=== PATIENT | female | born 1965 | race Caucasian/White ===

== ENCOUNTER → 2024-01-11 14:30 | Outpatient (REF) | payer BC, SELFPAY | LOC: RAD 14:30 | PROVIDERS: ATTENDING PHYSICIAN Nurse Practitioner; FAMILY PHYSICIAN Internal Medicine | DX: M25.561 Pain in right knee (principal) | CPT/HCPCS: 73564 ==

== ENCOUNTER → 2024-02-02 08:13 | Outpatient (REF) | payer BC, SELFPAY | LOC: HWRAD 08:13 | PROVIDERS: ATTENDING PHYSICIAN Nurse Practitioner | DX: M71.21 Synovial cyst of popliteal space [Baker], right knee (principal) | CPT/HCPCS: 76882 ==

== ENCOUNTER → 2024-02-22 16:14 | Outpatient (REF) | payer BC, SELFPAY | LOC: WDC 16:14 | PROVIDERS: ATTENDING PHYSICIAN Obstetrics & Gynecology; FAMILY PHYSICIAN Internal Medicine | DX: Z12.31 Encounter for screening mammogram for malignant neoplasm of breast (principal) | CPT/HCPCS: 77063; 77067 ==

== ENCOUNTER → 2024-03-17 09:56 | Outpatient (REF) | payer BC, SELFPAY ==
[2024-03-17 11:10] LABS: % Basophils 0.6 % (0-2); % Eosinophils 2.6 % (0-6); % Immature Granulocytes 0.6 % (0-0.5); % Monocytes 10.5 % (1.7-9.3); % Neutrophils 71.7 % (42.2-75.2); Absolute Eosinophils 0.1 10^3/uL (0-0.7); Absolute Lymphocytes 0.5 10^3/uL (1.2-3.4); Absolute Monocytes 0.4 10^3/uL (0.1-0.6); Absolute Neutrophils 2.5 10^3/uL (1.4-6.5); Hematocrit 37.4 % (37.0-47.0); Hemoglobin 12.7 g/dL (12.0-16.0); Mean Corpuscular Hgb 31.6 pg (27.0-31.0); Mean Platelet Volume 9.8 fL (7.4-10.4); Nucleated Red Blood Cells % 0 %; Platelet Count 187 10^3/uL (130-400); Red Blood Cell Count 4.02 10^6/uL (4.20-5.40); Red Cell Dist. Width 12.2 % (11.5-14.5); White Blood Cell Count 3.4 10^3/uL (4.8-10.8)
[2024-03-17 11:49] LABS: ALT (SGPT) 32 U/L (0-35); AST (SGOT) 28 U/L (14-36); Albumin 5.2 g/dl (3.5-5.0); Alkaline Phosphatase 77 U/L (38-126); Blood Urea Nitrogen 17 mg/dl (7-17); Calcium 9.7 mg/dl (8.4-10.2); Carbon Dioxide 26 mmol/L (22-30); Chloride 102 mmol/L (98-107); Glucose 95 mg/dl (70-99); HDL Cholesterol 52 mg/dl; LDL Cholesterol, Calculated 82 mg/dl; Potassium 4.8 mmol/L (3.5-5.1); Sodium 142 mmol/L (135-145); Total Bilirubin 0.8 mg/dl (0.2-1.3); Total Cholesterol 150 mg/dl (50-199); Total Protein 7.3 g/dl (6.3-8.2); Triglyceride 84 mg/dl (10-149); Very Low Density Lipoprotein 16 mg/dl (0-30); eGFR 53.13
[2024-03-17 12:01] LABS: Vitamin D, 25-OH*** 93.7 ng/mL (30-80)
[2024-03-17 12:15] LABS: TSH Reflex To Free T4 0.35 uIU/ml (0.47-4.68)
[2024-03-17 12:34] LABS: Microalbumin, Random Urine 1.1 mg/dl (0.6-1.7); Microalbumin/creatinine Ratio 5.6 mg/g
[2024-03-17 12:45] LABS: Free T4 1.32 ng/dl (0.78-2.19)
== END ==
LOC: REG 09:56
PROVIDERS: ATTENDING PHYSICIAN Specialist; FAMILY PHYSICIAN Internal Medicine
DX: I77.3 Arterial fibromuscular dysplasia (principal); E78.00 Pure hypercholesterolemia, unspecified; E03.9 Hypothyroidism, unspecified; I15.1 Hypertension secondary to other renal disorders
CPT/HCPCS: 36415; 80053; 80061; 82043; 82306; 82570; 84439; 84443; 85025

== ENCOUNTER → 2024-09-10 08:12 | Outpatient (REF) | payer BC, SELFPAY ==
[2024-09-10 08:48] LABS: % Basophils 0.9 % (0-2); % Eosinophils 22.7 % (0-6); % Immature Granulocytes 0.2 % (0-0.5); % Lymphocytes 16.4 % (20.5-51.1); % Monocytes 9.9 % (1.7-9.3); % Neutrophils 49.9 % (42.2-75.2); Absolute Lymphocytes 0.7 10^3/uL (1.2-3.4); Absolute Monocytes 0.4 10^3/uL (0.1-0.6); Absolute Neutrophils 2.2 10^3/uL (1.4-6.5); Hematocrit 37.3 % (37.0-47.0); Hemoglobin 12.5 g/dL (12.0-16.0); Mean Corp Hgb Conc. 33.5 g/dL (33.0-37.0); Mean Corpuscular Hgb 30.6 pg (27.0-31.0); Mean Corpuscular Volume 91.2 fL (81.0-99.0); Mean Platelet Volume 9.9 fL (7.4-10.4); Nucleated Red Blood Cells % 0 %; Platelet Count 180 10^3/uL (130-400); Red Blood Cell Count 4.09 10^6/uL (4.20-5.40); Red Cell Dist. Width 12.4 % (11.5-14.5); White Blood Cell Count 4.4 10^3/uL (4.8-10.8)
== END ==
LOC: REG 08:12
PROVIDERS: ATTENDING PHYSICIAN Internal Medicine; REFERRING PHYSICIAN Specialist
DX: D72.810 Lymphocytopenia (principal)
CPT/HCPCS: 36415; 85025

== ENCOUNTER → 2024-09-12 15:38 | Outpatient (REF) | payer BC, SELFPAY ==
[2024-09-12 18:25] LABS: Free T4 1.33 ng/dl (0.78-2.19)
[2024-09-13 09:44] LABS: Glycohemoglobin (HgbA1c) 5.3 % (4.0-5.6)
== END ==
LOC: REG 15:38
PROVIDERS: ATTENDING PHYSICIAN Internal Medicine Endocrinology, Diabetes & Metabolism; FAMILY PHYSICIAN Internal Medicine; OTHER PHYSICIAN Specialist
DX: E03.9 Hypothyroidism, unspecified (principal)
CPT/HCPCS: 36415; 83036; 84439; 84443